=== PATIENT | male | born 1990 | race American Indian/Alaskan Native ===

== ENCOUNTER 2017-05-24 10:58 | Outpatient (CLI) | payer BC ==
--- NOTE | 2017-05-24 12:24 | XRay Report ---
ROUTINE CHEST, TWO VIEWS: HISTORY: Positive PPD. The trachea, heart, mediastinal contour, lung cisneros and bony thorax are unremarkable. IMPRESSION: Unremarkable chest x-ray.
== END 2017-05-24 10:59 | disposition home or self-care (01) ==
LOC: SPVIMAG 10:58
DX: R76.11 Nonspecific reaction to tuberculin skin test without active tuberculosis (principal)
CPT/HCPCS: 71020